=== PATIENT | female | born 1980 | race Caucasian/White ===

== ENCOUNTER → 2020-12-27 | Outpatient (REF) | payer OTHER ==
[2020-12-27 17:46] LABS: ALBUMIN 4.2 GM/DL (3.2-5.2); ALT/SGPT 107 U/L (12-78); BILIRUBIN,DIRECT 0.1 MG/DL (0.0-0.2); BILIRUBIN,TOTAL 0.6 MG/DL (0.2-1.0); C REACTIVE PROTEIN QUANTITATIV < 0.30 MG/DL (0.00-0.30); TOTAL PROTEIN 7.1 GM/DL (6.4-8.2)
[2020-12-27 17:53] LABS: TOTAL 25(OH) VITAMIN D 27.7 NG/ML (30.0-100.0)
== END ==
LOC: M SFHCRHEU 11:44
PROVIDERS: ATTEND Internal Medicine
DX: E55.9 Vitamin D deficiency, unspecified (principal); R74.8 Abnormal levels of other serum enzymes; M06.4 Inflammatory polyarthropathy